=== PATIENT | female | born 1975 | race Asian ===

== ENCOUNTER 2021-10-03 18:45 | Emergency (ER) | payer BC, SELFPAY ==
[~2021-10-03] VITALS: Ht 162.6 cm; Wt 57.6 kg
[2021-10-03 18:45] VITALS: BP_SYST 167
--- NOTE | 2021-10-03 18:55 | NUR ---
46 years old female present to er with left 5th finger laceration, tetanus unknown.
--- NOTE | 2021-10-03 19:06 | NUR ---
report endorsed to nurse Brad all questions answered.
--- NOTE | 2021-10-03 19:48 | NUR ---
doctor with patient.
[2021-10-03] MEDS ORDERED: DIPH-TET-PERTUS Vaccine 0.5 ML VIAL (ADACEL) I.M. ONE ×2 (20:50→20:51)
[2021-10-03 20:57] VITALS: BP_SYST 167
--- NOTE | 2021-10-03 20:57 | NUR ---
Patient given written and verbal discharge instructions and verbalizes understanding. ER MD discussed with patient the results and treatment provided. Patient in stable condition. ID arm band removed. Patient educated on pain management and to follow up with PMD. Pain Scale 2/10. Opportunity for questions provided and answered. Medication side effect fact sheet provided.
== END 2021-10-03 20:57 | disposition home or self-care (01) ==
LOC: SED 18:45
DX: S61.317A Laceration without foreign body of left little finger with damage to nail, initial encounter (principal); W26.0XXA Contact with knife, initial encounter; Y93.89 Activity, other specified; Y92.89 Other specified places as the place of occurrence of the external cause; Y99.8 Other external cause status
CPT/HCPCS: 90715; 99283